=== PATIENT | female | born 1955 | race Hispanic/Latino ===

== ENCOUNTER 2018-12-10 17:11 | Emergency (ER) | payer OTHER ==
--- OUTSIDE RECORDS SUMMARY | 2018-12-10 17:15 | XMS REPORT | Summary of Care ---
:1955 Author Encounter [facility](RAVI) [id number] Date(s): 06/26/14 - 06/27/[address] Discharge Diagnosis: Constipation Discharge Diagnosis: UTI (urinary tract infection) Discharge Disposition: Home Physician Attending: Kyrie Blakely MD Reason for Visit CONSTIPATION Vital Signs Most recent to oldest [Reference 1 2 3 Range]: Height 157.48 cm (06/26/14 1:08 PM) Temperature Oral [96.4-99.1 DegF] 97.8 DegF 99.5 DegF 98.0 DegF (06/27/14 3:59 AM) *HI* (06/26/14 1:08 PM) (06/26/14 11:45 PM) Systolic Blood Pressure [90-140 157 mmHg 163 mmHg 158 mmHg mmHg] *HI* *HI* *HI* (06/27/14 3:59 AM) (06/26/14 11:45 PM) (06/26/14 1:08 PM) Diastolic Blood Pressure [60-90 91 mmHg 102 mmHg 90 mmHg mmHg] *HI* *HI* (06/26/14 1:08 PM) (06/27/14 3:59 AM) (06/26/14 11:45 PM) Respiratory Rate [14-20 BRMIN] 19 BRMIN 18 BRMIN 18 BRMIN (06/27/14 3:59 AM) (06/26/14 11:45 PM) (06/26/14 1:08 PM) Peripheral Pulse Rate [60-100 97 bpm 102 bpm 93 bpm bpm] (06/27/14 3:59 AM) *HI* (06/26/14 1:08 PM) (06/26/14 11:45 PM) Weight 85.909 kg (06/26/14 1:08 PM) Body Mass Index 34.64 m2 (06/26/14 1:08 PM) Problem List No data available for this section Allergies, Adverse Reactions, Alerts Substance Reaction Severity Status NKDA Active Medications lactulose 10 g/15 mL oral syrup 20 gm=30 ml, PO, BID, constipation, # 240 ml, 0 Refill(s) Start Date: 06/27/14 Status: OrderedMacrobid 100 mg oral capsule 100 mg=1 cap, PO, BID, # 20 cap, 0 Refill(s) Start Date: 06/27/14 Stop Date: 07/07/14 Status: OrderedRocephin + Sodium Chloride 0.9% IV 100 mL 1 gm, Route: IVPB, ONCE, Dosing Weight 85.909, kg, Priority: STAT, Start date: 06/27/14 1:16:00, Stop date: 06/27/14 1:16:00 Notes: (Same As: Rocephin). Use with 100ml NS mini-bag PLUS and infuse over 30 min Start Date: 06/27/14 Stop Date: 06/27/14 Status: CompletedSaline Flush 0.9% 10 mL, Route: IVP, Drug Form: INJ, Dosing Weight 85.909, kg, PRN, PRN Line Flush , Start date: 06/26/14 23:41:00, Duration: 30 day, Stop date: 07/26/14 23:40:00 Notes: (Same as: BD Posiflush) Start Date: 06/26/14 Stop Date: 06/27/14 Status: Discontinued Results ELECTROLYTES Most recent to oldest [Reference Range]: 1 Sodium Lvl [135-145 mEq/L] 133 mEq/L *LOW* (06/26/14 11:56 PM) Potassium Lvl [3.5-5.1 mEq/L] 4.3 mEq/L (06/26/14 11:56 PM) Chloride Lvl [95-109 mEq/L] 99 mEq/L (06/26/14 11:56 PM) CO2 [24-32 mEq/L] 26 mEq/L (06/26/14 11:56 PM) AGAP [10.0-20.0 mEq/L] 12.3 mEq/L (06/26/14 11:56 PM) CHEM PANEL Most recent to oldest [Reference Range]: 1 Creatinine Lvl [0.5-1.4 mg/dL] 1.0 mg/dL (06/26/14 11:56 PM) eGFR 61 mL/min/1.73m2 1 *NA* (06/26/14 11:56 PM) BUN [7-22 mg/dL] 12 mg/dL (06/26/14 11:56 PM) B/C Ratio [6-25] 12 (06/26/14 11:56 PM) Glucose Lvl [70-99 mg/dL] 383 mg/dL 2 *HI* (06/26/14 11:56 PM) Total Protein [6.4-8.4 g/dL] 8.2 g/dL (06/26/14 11:56 PM) Albumin Lvl [3.5-5.0 g/dL] 4.1 g/dL (06/26/14 11:56 PM) Globulin [2.0-4.0 g/dL] 4.1 g/dL *HI* (06/26/14 11:56 PM) A/G Ratio [0.7-1.6] 1.0 (06/26/14 11:56 PM) Calcium Lvl [8.5-10.5 mg/dL] 9.9 mg/dL (06/26/14 11:56 PM) ALT [0-65 unit/L] 97 unit/L *HI* (06/26/14 11:56 PM) AST [0-37 unit/L] 67 unit/L *HI* (06/26/14 11:56 PM) Alk Phos [39-136 unit/L] 87 unit/L (06/26/14 11:56 PM) Bili Total [0.2-1.3 mg/dL] 0.7 mg/dL (06/26/14 11:56 PM) 1Result Comment: The eGFR is calculated using the CKD-EPI formula. In most young , healthy individualsthe eGFR will be >90 mL/min/1.73m2. The eGFR declines with age. An eGFR of 60-89 may be normal in some populations, particularly the elderly, for whom the CKD-EPI formula has not been extensively validated. Use of the eGFR is not recommended in the following populations: Individuals with unstable creatinine concentrations, including patients and those with serious co-morbid conditions. Patients with extremes in muscle mass or diet. The data above are obtained from the National Kid[employer] Education Program ( NK[employer]) which additionally recommends that when the eGFR is used in patients with extremes of body mass index for purposesof drug dosing, the eGFR should be multiplied by the estimated BMI.2Interpretive Data: Adult reference range values reflect the clinical guidelines of the [place] [employer].URINE AND STOOL Most recent to oldest [Reference Range]: 1 UA Turbidity [Clear] Slight Cloudy (06/26/14 4:20 PM) UA Color [Yellow] Yellow *NA* (06/26/14 4:20 PM) UA pH [5.0-8.0] 5.5 (06/26/14 4:20 PM) UA Spec Grav [<=1.030] 1.025 (06/26/14 4:20 PM) UA Glucose [Negative mg/dL] >=1000 mg/dL *ABN* (06/26/14 4:20 PM) UA Blood [Negative] Negative (06/26/14 4:20 PM) UA Ketones [Negative] Trace *ABN* (06/26/14 4:20 PM) UA Protein [Negative] Negative (06/26/14 4:20 PM) UA Urobilinogen [0.1-1.0 EU/dL] 0.2 EU/dL (06/26/14 4:20 PM) UA Bili [Negative] Negative *NA* (06/26/14 4:20 PM) UA Leuk Est [Negative] Negative (06/26/14 4:20 PM) UA Nitrite [Negative] Positive *ABN* (06/26/14 4:20 PM) UA WBC [None Seen /HPF] 11-20 /HPF *ABN* (06/26/14 4:20 PM) UA RBC [0-2 /HPF] 3-5 /HPF *ABN* (06/26/14 4:20 PM) UA Bacteria [None Seen /HPF] Many /HPF (06/26/14 4:20 PM) UA Sq Epi [Few /LPF] Rare /LPF (06/26/14 4:20 PM) Micro? Performed (06/26/14 4:20 PM) HEMATOLOGY Most recent to oldest [Reference Range]: 1 WBC [3.7-10.4 K/CMM] 9.8 K/CMM (1/5/15 11:56 PM) RBC [4.20-5.40 M/CMM] 5.14 M/CMM (06/26/14 11:56 PM) Hgb [12.0-16.0 g/dL] 15.0 g/dL (06/26/14 11:56 PM) Hct [36.0-48.0 %] 44.9 % (06/26/14 11:56 PM) MCV [80.0-98.0 fL] 87.3 fL (06/26/14 11:56 PM) MCH [27.0-31.0 pg] 29.1 pg (06/26/14 11:56 PM) MCHC [32.0-36.0 g/dL] 33.4 g/dL (06/26/14 11:56 PM) RDW [11.5-14.5 %] 13.6 % (06/26/14 11:56 PM) Platelet [133-450 K/CMM] 164 K/CMM (06/26/14 11:56 PM) MPV [7.4-10.4 fL] 11.5 fL *HI* (06/26/14 11:56 PM) Segs [45.0-75.0 %] 78.4 % *HI* (06/26/14 11:56 PM) Lymphocytes [20.0-40.0 %] 15.1 % *LOW* (06/26/14 11:56 PM) Monocytes [2.0-12.0 %] 5.4 % (06/26/14 11:56 PM) Eosinophils [0.0-4.0 %] 0.6 % (06/26/14 11:56 PM) Basophils [0.0-1.0 %] 0.5 % (06/26/14 11:56 PM) Segs-Bands # [1.5-8.1 K/CMM] 7.7 K/CMM (06/26/14 11:56 PM) Lymphocytes # [1.0-5.5 K/CMM] 1.5 K/CMM (06/26/14 11:56 PM) Monocytes # [0.0-0.8 K/CMM] 0.5 K/CMM (06/26/14 11:56 PM) Eosinophils # [0.0-0.5 K/CMM] 0.1 K/CMM (06/26/14 11:56 PM) Medications Administered During Your Visit No data available for this section Immunizations No data available for this section Social History Social History Type Response Smoking Status Never smoker, Exposure to Tobacco Smoke None, Cigarette Smoking Last 365 Days No, Reg Smoking Cessation Counseling No
--- OUTSIDE RECORDS SUMMARY | 2018-12-10 17:15 | XMS REPORT | Continuity of Care Document ---
:1955 Author Organization Interface Problems Problem Status Onset Classification Date Comments Source Date Reported Discharge 07/30/19 08/02/2016 [facility] Diagnosis: 17 Right-sided Fernández's palsy. FACIAL DROOP Active 07/30/19 [facility] 17 Discharge 06/27/19 06/29/2014 [facility] Diagnosis: 15 Constipation Discharge 06/27/19 06/29/2014 [facility] Diagnosis: UTI 15 CONSTIPATION Active 06/26/19 [facility] 15 Diabetes Active Problem 08/02/2016 [facility] HTN (<span Active Problem 08/02/2016 [facility] ID="[id number]" >Confirmed</span> ) Fernández's palsy Active Problem 09/12/2016 [facility] Surgical [facility] BP+ - Active Problem 09/12/2016 [facility] Hypertension [facility] DM - Diabetes Active Problem 09/12/2016 [facility] mellitus [facility] Fibromyalgia Active Problem 09/12/2016 [facility] Surgical [facility] Hyperlipidemia Active Problem 09/12/2016 [facility] Surgical [facility] Hypothyroidism Active Problem 09/12/2016 [facility] Surgical [facility] Medications Medication Details Route Status Patient Ordering Order Source Instructions Provider Date Naprosyn 500 mg 500 mg=1 Active Claudia [facility] oral tablet tabs, 017 Surgical Oral, BID, Specialty PRN for Hospital pain, # 20 tabs, 0 Refill(s) HumuLIN R 10 units, Active [facility] Subcutaneo 017 Surgical us, BID, 0 Specialty Refill(s) Hospital gabapentin 100 200 mg=2 Active [facility] mg oral capsule caps, 017 Surgical Oral, TID, Specialty 0 Hospital Refill(s) atorvastatin 10 10 mg=1 Active [facility] mg oral tablet tabs, 017 Surgical Oral, Specialty Daily, 0 Hospital Refill(s) levothyroxine 50 50 mcg=1 Active [facility] mcg (0.05 mg) tabs, 017 Surgical oral tablet Oral, Specialty Daily, 0 Hospital Refill(s) metFORMIN 1000 1,000 mg=1 Active [facility] mg oral tablet tabs, 017 Surgical Oral, BID, Specialty 0 Hospital Refill(s) lisinopril 30 mg 30 mg=1 Active [facility] oral tablet tabs, 017 Surgical Oral, Specialty Daily, 0 Hospital Refill(s) Lubricant Eye 1 drp, Active Drops preserved RIGHT EYE, 017 [facility] ophthalmic Q2H, 1-2 solution drop q2h while awake., # 1 btl, 0 Refill(s) Ondansetron 4 MG 4 mg=1 Active Oral Tablet tab, PO, 017 [Zofran] BID, X 5 day, # 10 tab, 0 Refill(s) acyclovir 800 mg 800 mg=1 Active oral tablet tab, PO, 017 [facility] TID, X 7 day, # 21 tab, 0 Refill(s) {21 See Active (Methylprednisol Instructio 017 [facility] one 4 MG Oral ns, PO, Tablet [Medrol]) Take by } Pack [Medrol mouth as Dosepak] directed on label., # 1 Pack, 0 Refill(s) Lactulose 667 20 gm=30 Active MG/ML Oral ml, PO, 015 Solution BID, constipati on, # 240 ml, 0 Refill(s) Nitrofurantoin 100 mg=1 Active 100 MG Oral cap, PO, 015 [facility] Capsule BID, # 20 [Macrobid] cap, 0 Refill(s) Rocephin 1 gm, Inactive Route: 015 [facility] IVPB, ONCE, Dosing Weight 85.909, kg, Priority: STAT, Start date: 06/27/14 1:16:00, Stop date: 06/27/14 1:16:00Not es: (Same As: Rocephin). Use with 100ml NS mini-bag PLUS and infuse over 30 min Saline Flush 10 mL, No Longer 0.9% Route: Active [facility] IVP, Drug Form: INJ, Dosing Weight 85.909, kg, PRN, PRN Line Flush, Start date: 06/26/14 23:41:00, Duration: 30 day, Stop date: 07/26/14 23:40:00No ashok: (Same as: BD Posiflush) Allergies, Adverse Reactions, Alerts Substance Category Reaction Severity Reaction Status Date Comments Source type Reported Immunizations Immunization Date Given Site Status Last Updated Comments Source Results Order Name Results Value Reference Date Interpretation Comments Source Range CARDIAC Troponin-I null 0.00 - 02 ENZYMES 0.40 /2017 [facility] CARDIAC CK MB Index 1.4 0.0 - 2.5 07/30 [facility]YMES [facility] CARDIAC CK MB 3.7 ng/mL 0.5 - 3.6 07/30 [facility]YMES [facility] CARDIAC Total CK 267 unit/L 12 - 191 07/30 ENZYMES [facility] CHEM PANEL eGFR 54 07/30 Result Comment: The eGFR is calculated using the CKD-EPI formula. In most young, healthy individuals the eGFR will be >90 mL/ min/1.73m2. The eGFR declines with age. An eGFR of 60-89 may be normal in mL/min/1.7 /2016 some populations, particularly the elderly, for whom the CKD-EPI formula has not been extensively validated. Use of the eGFR is not recommended in the following populations: [facility] 3m2 Individuals with unstable creatinine concentrations, including patients and those with serious co-morbid conditions. Patients with extremes in muscle mass or diet. The data above are obtained from the National Kidney Disease Education Program (NKDEP) which additionally recommends that when the eGFR is used in patients with extremes of body mass index for purposes of drug dosing, the eGFR should be multiplied by the estimated BMI. CHEM PANEL Bili Total 0.4 mg/dL 0.2 - 1.3 07/30 [facility] CHEM PANEL Total 7.5 g/dL 6.4 - 8.4 07/30 [facility] CHEM PANEL ALT 57 unit/L 0 - 65 07/30 [facility] CHEM PANEL Albumin Lvl 4.0 g/dL 3.5 - 5.0 07/30 [facility] CHEM PANEL AST 32 unit/L 0 - 37 07/30 [facility] CHEM PANEL B/C Ratio 18 6 - 25 07/30 [facility] CHEM PANEL A/G Ratio 1.1 0.7 - 1.6 07/30 [facility] CHEM PANEL Globulin 3.5 g/dL 2.7 - 4.2 07/30 [facility] CHEM PANEL Alk Phos 60 unit/L 39 - 136 02/ [facility] CHEM PANEL AGAP 12.0 meq/L 10.0 - 02 MH 20.0 /2016 [facility] CHEM PANEL Calcium Lvl 9.5 mg/dL 8.5 - 10.5 07/30 [facility] CHEM PANEL CO2 28 meq/L 24 - 32 07/30 [facility] CHEM PANEL Chloride Lvl 98 meq/L 95 - 109 07/30 [facility] CHEM PANEL Sodium Lvl 134 meq/L 135 - 145 02 [facility] CHEM PANEL Creatinine 1.10 mg/dL 0.50 - 02 MH Lvl 1.40 /2016 [facility] CHEM PANEL Glucose Lvl 351 mg/dL 70 - 99 07/30 [facility] CHEM PANEL BUN 20 mg/dL 7 - 22 07/30 [facility] CHEM PANEL Potassium 4.0 meq/L 3.5 - 5.1 07/30 Lvl /2017 [facility] HEMATOLOGY PT 13.6 s 12.0 - 07/30 MH 14.7 /2016 [facility] HEMATOLOGY PTT 28.2 s 22.9 - 02 MH 35.8 /2016 [facility] HEMATOLOGY INR 1.02 0.85 - 02 MH 1.17 /2016 [facility] HEMATOLOGY Segs 56.3 % 45.0 - 02 75.0 /2016 [facility] HEMATOLOGY Monocytes 6.1 % 2.0 - 12.0 07/30 [facility] HEMATOLOGY Eosinophils 5.9 % 0.0 - 4.0 07/30 [facility] HEMATOLOGY Monocytes # 0.3 K/CMM 0.0 - 0.8 07/30 [facility] HEMATOLOGY Lymphocytes 30.6 % 20.0 - 02/08 MH 40.0 /2017 [facility] HEMATOLOGY Lymphocytes 1.5 K/CMM 1.0 - 5.5 02/08 MH # /2016 [facility] HEMATOLOGY Segs-Bands # 2.8 K/CMM 1.5 - 8.1 07/30 [facility] HEMATOLOGY Basophils 1.1 % 0.0 - 1.0 07/30 [facility] HEMATOLOGY Basophils # 0.1 K/CMM 0.0 - 0.2 07/30 [facility] HEMATOLOGY Eosinophils 0.3 K/CMM 0.0 - 0.5 07/30 MH /2016 [facility] HEMATOLOGY MPV 10.9 fL 7.4 - 10.4 07/30 [facility] Platelet 111 K/CMM 133 - 450 07/30 [facility] MCH 29.2 pg 27.0 - 07/30 MH 31.0 [facility] MCV 87.9 fL 80.0 - 07/30 MH 98.0 /2016 [facility] Hct 38.3 % 36.0 - 07/30 48.0 /2016 [facility] MCHC 33.2 g/dL 32.0 - 07/30 36.0 [facility] RDW 13.7 % 11.5 - 07/30 MH 14.5 /2016 [facility] WBC 5.0 K/CMM 3.7 - 10.4 07/30 [facility] RBC 4.36 M/CMM 4.20 - 07/30 5.40 /2016 [facility] Hgb 12.7 g/dL 12.0 - 07/30 16.0 [facility] Brain wo Brain wo I agree with the above findings and impression. 07/30 - contrast contrast CT /2016 - [facility] CT Clinical Indication: Weakness Comparison: Comparison is made to head CT examination dated 12/13/2011. Read by: Fantasma Worley MD Dictated Date/time: 07/30/16 14:54 Electronically Signed by: Fantasma Worley MD 07/30/16 14:56 FINAL REPORT TECHNIQUE: CT images were obtained from the foramen magnum to the vertex without the use of intravenous contrast on a multidetector CT. Coronal and sagittal reconstructions were obtained. - - CT radiation dose DLP: 1149.40 mGy-cm Read by: Alexis Hayden MD Dictated Date/time: 07/30/16 14:49 FINDINGS: Electronically Signed by: Alexis Hayden MD 07/30/16 14:52 FINAL REPORT The ventricles and sulci are normal in size and configuration. No mass effect or midline shift. The basilar cisterns appear patent. No acute intracranial hemorrhage. There is preservation of the cuellar-wh ite matter differentiation. Minimal foci of low attenuation are present throughout the periventricular white matter. The visualized portions of the paranasal sinuses and mastoid air cells appear clear. If there is further concern for intracranial pathology or acute stroke, MRI of the brain may be performed for complete assessment. IMPRESSION: 1. No acute intracranial abnormality. No acute intracranial hemorrhage. 2. Minimal foci of low attenuation present throughout the periventricular white matter. This finding is nonspecific, but may be seen in the setting of chronic small vessel ischemic disease. SL: [id number] CHEM PANEL B/C Ratio 12 6 - 25 06/27 [facility] CHEM PANEL Globulin 4.1 g/dL 2.0 - 4.0 06/27 [facility] CHEM PANEL A/G Ratio 1.0 0.7 - 1.6 06/27 [facility] CHEM PANEL AGAP 12.3 meq/L 10.0 - 06/27 MH 20.0 [facility] CHEM PANEL eGFR 61 06/27 1Result Comment: The eGFR is calculated using the CKD-EPI formula. In most young, healthy individuals the eGFR will be >90 mL/ min/1.73m2. The eGFR declines with age. An eGFR of 60-89 may be normal in mL/min/1.7 some populations, particularly the elderly, for whom the CKD-EPI formula has not been extensively validated. Use of the eGFR is not recommended in the following populations: [facility] 3m2 Individuals with unstable creatinine concentrations, including patients and those with serious co-morbid conditions. Patients with extremes in muscle mass or diet. The data above are obtained from the National Kidney Disease Education Program (NKDEP) which additionally recommends that when the eGFR is used in patients with extremes of body mass index for purposes of drug dosing, the eGFR should be multiplied by the estimated BMI. CHEM PANEL ALT 97 unit/L 0 - 65 06/27 [facility] CHEM PANEL BUN 12 mg/dL 7 - 22 06/27 [facility] CHEM PANEL Creatinine 1.0 mg/dL 0.5 - 1.4 06/27 [facility] CHEM PANEL Sodium Lvl 133 meq/L 135 - 145 06/27 [facility] CHEM PANEL Potassium 4.3 meq/L 3.5 - 5.1 06/27 [facility] CHEM PANEL Chloride Lvl 99 meq/L 95 - 109 06/27 [facility] CHEM PANEL Calcium Lvl 9.9 mg/dL 8.5 - 10.5 06/27 [facility] CHEM PANEL Total 8.2 g/dL 6.4 - 8.4 06/27 Protein [facility] CHEM PANEL Albumin Lvl 4.1 g/dL 3.5 - 5.0 06/27 [facility] CHEM PANEL Alk Phos 87 unit/L 39 - 136 06/27 [facility] CHEM PANEL AST 67 unit/L 0 - 37 06/27 [facility] CHEM PANEL Bili Total 0.7 mg/dL 0.2 - 1.3 06/27 [facility] CHEM PANEL CO2 26 meq/L 24 - 32 06/27 [facility] CHEM PANEL Glucose Lvl 383 mg/dL 70 - 99 06/27 2Interpretive Data: Adult reference range values reflect the clinical guidelines of the [place] [employer]. [facility] HEMATOLOGY Basophils 0.5 % 0.0 - 1.0 06/27 [facility] HEMATOLOGY Eosinophils 0.6 % 0.0 - 4.0 06/27 [facility] HEMATOLOGY Lymphocytes 15.1 % 20.0 - 06/27 MH 40.0 [facility] HEMATOLOGY Monocytes 5.4 % 2.0 - 12.0 06/27 [facility] HEMATOLOGY Segs-Bands # 7.7 K/CMM 1.5 - 8.1 06/27 [facility] HEMATOLOGY Monocytes # 0.5 K/CMM 0.0 - 0.8 06/27 [facility] HEMATOLOGY Lymphocytes 1.5 K/CMM 1.0 - 5.5 06/27 MH # /2014 [facility] HEMATOLOGY Eosinophils 0.1 K/CMM 0.0 - 0.5 06/27 MH /2014 [facility] HEMATOLOGY Segs 78.4 % 45.0 - 06/27 MH 75.0 [facility] HEMATOLOGY Platelet 164 K/CMM 133 - 450 06/27 [facility] HEMATOLOGY RDW 13.6 % 11.5 - 06/27 MH 14.5 [facility] HEMATOLOGY MCHC 33.4 g/dL 32.0 - 06/27 MH 36.0 /2014 [facility] HEMATOLOGY MCH 29.1 pg 27.0 - 06/27 MH 31.0 /2014 [facility] HEMATOLOGY MPV 11.5 fL 7.4 - 10.4 06/27 [facility] HEMATOLOGY MCV 87.3 fL 80.0 - 06/27 MH 98.0 /2014 [facility] HEMATOLOGY Hct 44.9 % 36.0 - 06/27 MH 48.0 /2014 [facility] HEMATOLOGY Hgb 15.0 g/dL 12.0 - 06/27 MH 16.0 [facility] HEMATOLOGY RBC 5.14 M/CMM 4.20 - 06/27 5.40 /2014 [facility] HEMATOLOGY WBC 9.8 K/CMM 3.7 - 10.4 06/27 [facility] URINE AND UA Color Yellow Yellow 06/26 [facility] *NA* (06/26/14 4:20 PM) URINE AND UA pH 5.5 5.0 - 8.0 06/26 [facility] URINE AND UA Spec Grav 1.025 <=1.030 06/26 [facility] URINE AND UA Turbidity Slight Cloudy Clear 06/26 [facility] (06/26/14 4:20 PM) URINE AND UA Leuk Est Negative Negative 06/26 [facility] (06/26/14 4:20 PM) URINE AND UA Nitrite Positive Negative 06/26 [facility] *ABN* (06/26/14 4:20 PM) URINE AND UA 0.2 EU/dL 0.1 - 1.0 06/26 [facility] Urobilinogen [facility] URINE AND UA Bili Negative Negative 06/26 [facility] *NA* (06/26/14 4:20 PM) URINE AND UA Blood Negative Negative 06/26 [facility] (06/26/14 4:20 PM) URINE AND UA Protein Negative Negative 06/26 [facility] (06/26/14 4:20 PM) URINE AND UA Glucose >=1000 Negative 06/26 [facility] mg/dL mg/dL [facility] URINE AND UA Ketones Trace Negative 06/26 [facility] *ABN* (06/26/14 4:20 PM) URINE AND Micro? Performed 06/26 [facility] (06/26/14 4:20 PM) URINE AND UA RBC 3-5 /HPF 0 - 2 06/26 [facility] URINE AND UA Bacteria Many /HPF None Seen 06/26 [facility] /HPF [facility] URINE AND UA Sq Epi Rare /LPF Few /LPF 06/26 [facility] URINE AND UA WBC 11-20 /HPF None Seen 06/26 [facility] /HPF [facility] Vital Signs Vital Sign Value Date Comments Source Peripheral Pulse Rate 92 09/10/2016 [facility] Temperature Oral (F) 36.5 Amena 09/10/2016 [facility] Systolic (mm Hg) <content 09/10/2016 [facility] ID='[id number] [facility] [id number]'>146</cont ent>/<content ID='[id number]'>87</tawanna nt> Respitory Rate 18 09/10/2016 [facility] Surgical [facility] Respitory Rate 16 09/10/2016 [facility] Systolic (mm Hg) <content 09/10/2016 [facility] ID='[id number] [facility] [id number]'>146</cont ent>/<content ID='[id number]'>87</tawanna nt> Peripheral Pulse Rate 93 09/10/2016 [facility] Surgical Specialty [facility] Temperature Oral (F) 36.8 Amena 09/10/2016 [facility] Temperature Oral (F) 98.4 F 07/30/2016 [facility] Respitory Rate 22 07/30/2016 [facility] Systolic (mm Hg) 133 07/30/2016 [facility] Diastolic (mm Hg) 86 07/30/2016 [facility] Respitory Rate 21 07/30/2016 [facility] Systolic (mm Hg) 144 07/30/2016 [facility] Diastolic (mm Hg) 84 07/30/2016 [facility] Weight 80.909 07/30/2016 [facility] BMI Calculated 32.62 07/30/2016 [facility] Height 157.48 cm 07/30/2016 [facility] Systolic (mm Hg) 161 07/30/2016 [facility] Diastolic (mm Hg) 97 07/30/2016 [facility] Temperature Oral (F) 98.5 F 07/30/2016 [facility] Respitory Rate 16 07/30/2016 [facility] Heart Rate 94 07/30/2016 [facility] Heart Rate 97 06/27/2014 [facility] Temperature Oral (F) 97.8 F 06/27/2014 [facility] Respitory Rate 19 06/27/2014 [facility] Diastolic (mm Hg) 91 06/27/2014 [facility] Systolic (mm Hg) 157 06/27/2014 [facility] Temperature Oral (F) 99.5 F 06/27/2014 [facility] Respitory Rate 18 06/27/2014 [facility] Diastolic (mm Hg) 102 06/27/2014 [facility] Systolic (mm Hg) 163 06/27/2014 [facility] Heart Rate 102 06/27/2014 [facility] Heart Rate 93 06/26/2014 [facility] Respitory Rate 18 06/26/2014 [facility] Temperature Oral (F) 98.0 F 06/26/2014 [facility] Weight 85.909 06/26/2014 [facility] Height 157.48 cm 06/26/2014 [facility] BMI Calculated 34.64 06/26/2014 [facility] Systolic (mm Hg) 158 06/26/2014 [facility] Diastolic (mm Hg) 90 06/26/2014 [facility] Encounters Location Location Encounter Encounter Reason Attending ADM DC Status Source Details Type Number For Provider Date Date Visit [facility] [id number] Kyriecarlos manuel Blakely 06/26 06/27 [facility] Emergency /2014 [facility] Emergency [id number] [place] 07/30 07/30 [facility] [place] /2016 [facility] Emergency [id number] Fall Reinaldo 09/10 09/10 Active [facility] Claudia /2016 Surgical [facility] Procedures Procedure Code Date Perfomer Comments Source Emergency department 07854 [facility] Surgical visit for the 7 Specialty evaluation and Hospital management of a patient, which requires these 3 hwang components: An expanded problem focused history; An expanded problem focused examination; and Medical decision making of moderate complexity. Counseling Radiologic [id number] [facility] Surgical examination, knee; 7 Specialty complete, 4 or more Hospital views Abdominal [id number] [facility] Surgical hysterectomy [facility] Appendectomy [id number] [facility] Surgical [facility] Cataract [id number] [facility] Surgical [facility] Cholecystectomy [id number] [facility]
--- OUTSIDE RECORDS SUMMARY | 2018-12-10 17:16 | XMS REPORT | Summary of Care ---
:1955 Author Organization [facility] Address [address] [place], [place] [address]- Encounter HQ Christen(FIN) [phone] Date(s): 07/30/16 - 07/30/16 [facility] [address] [place] [address]- Discharge Diagnosis: Right-sided Fernández's palsy. Discharge Disposition: Home or Self Care Attending Physician: Lebron Coulter DO Vital Signs Most recent to oldest [Reference 1 2 3 Range]: Height 157.48 cm (07/30/16 1:57 PM) Temperature Oral [96.4-99.1 DegF] 98.4 DegF 98.5 DegF (07/30/16 4:26 PM) (07/30/16 1:57 PM) Blood Pressure [90-140/60-90 mmHg] 133/86 mmHg 144/84 mmHg 161/97 mmHg (07/30/16 4:26 PM) *HI* *HI* (07/30/16 2:46 PM) (07/30/16 1:57 PM) Respiratory Rate [14-20 BRMIN] 22 BRMIN 21 BRMIN 16 BRMIN *HI* *HI* (07/30/16 1:57 PM) (07/30/16 4:26 PM) (07/30/16 2:46 PM) Peripheral Pulse Rate [60-100 bpm] 94 bpm (07/30/16 1:57 PM) Weight 80.909 kg (07/30/16 1:57 PM) Body Mass Index 32.62 m2 (07/30/16 1:57 PM) Problem List Condition Effective Dates Status Health Status Informant Diabetes(Confirmed) Active HTN (hypertension)(Confirmed) Active Allergies, Adverse Reactions, Alerts Substance Reaction Severity Status NKDA Active Medications acyclovir 800 mg oral tablet 800 mg=1 tab, PO, TID, X 7 day, # 21 tab, 0 Refill(s) Start Date: 07/30/16 Stop Date: 08/06/16 Status: OrderedLubricant Eye Drops preserved ophthalmic solution 1 drp, RIGHT EYE, Q2H, 1-2 drop q2h while awake., # 1 btl, 0 Refill(s) Start Date: 07/30/16 Status: OrderedMedrol Dosepak 4 mg oral tablet See Instructions, PO, Take by mouth as directed on label., # 1 Pack, 0 Refill(s) Start Date: 07/30/16 Stop Date: 08/05/16 Status: OrderedZofran 4 mg oral tablet 4 mg=1 tab, PO, BID, X 5 day, # 10 tab, 0 Refill(s) Start Date: 07/30/16 Stop Date: 08/04/16 Status: Ordered Results ELECTROLYTES Most recent to oldest [Reference Range]: 1 Sodium Lvl [135-145 mEq/L] 134 mEq/L *LOW* (07/30/16 2:46 PM) Potassium Lvl [3.5-5.1 mEq/L] 4.0 mEq/L (07/30/16 2:46 PM) Chloride Lvl [95-109 mEq/L] 98 mEq/L (07/30/16 2:46 PM) CO2 [24-32 mEq/L] 28 mEq/L (07/30/16 2:46 PM) AGAP [10.0-20.0 mEq/L] 12.0 mEq/L (07/30/16 2:46 PM) CHEM PANEL Most recent to oldest [Reference Range]: 1 Creatinine Lvl [0.50-1.40 mg/dL] 1.10 mg/dL (07/30/16 2:46 PM) eGFR 54 mL/min/1.73m2 1 *NA* (07/30/16 2:46 PM) BUN [7-22 mg/dL] 20 mg/dL (07/30/16 2:46 PM) B/C Ratio [6-25] 18 (07/30/16 2:46 PM) Glucose Lvl [70-99 mg/dL] 351 mg/dL *HI* (07/30/16 2:46 PM) Total Protein [6.4-8.4 g/dL] 7.5 g/dL (07/30/16 2:46 PM) Albumin Lvl [3.5-5.0 g/dL] 4.0 g/dL (07/30/16 2:46 PM) Globulin [2.7-4.2 g/dL] 3.5 g/dL (07/30/16 2:46 PM) A/G Ratio [0.7-1.6] 1.1 (07/30/16 2:46 PM) Calcium Lvl [8.5-10.5 mg/dL] 9.5 mg/dL (07/30/16 2:46 PM) ALT [0-65 unit/L] 57 unit/L (07/30/16 2:46 PM) AST [0-37 unit/L] 32 unit/L (07/30/16 2:46 PM) Alk Phos [39-136 unit/L] 60 unit/L (07/30/16 2:46 PM) Bili Total [0.2-1.3 mg/dL] 0.4 mg/dL (07/30/16 2:46 PM) 1Result Comment: The eGFR is calculated [...] eGFR should be multiplied by the estimated BMI.CARDIAC ENZYMES Most recent to oldest [Reference Range]: 1 Total CK [12-191 unit/L] 267 unit/L *HI* (07/30/16 2:46 PM) CK MB [0.5-3.6 ng/mL] 3.7 ng/mL *HI* (07/30/16 2:46 PM) CK MB Index [0.0-2.5] 1.4 (07/30/16 2:46 PM) Troponin-I [0.00-0.40 ng/mL] <0.02 ng/mL (07/30/16 2:46 PM) HEMATOLOGY Most recent to oldest [Reference Range]: 1 WBC [3.7-10.4 K/CMM] 5.0 K/CMM (07/30/16 2:46 PM) RBC [4.20-5.40 M/CMM] 4.36 M/CMM (07/30/16 2:46 PM) Hgb [12.0-16.0 g/dL] 12.7 g/dL (07/30/16 2:46 PM) Hct [36.0-48.0 %] 38.3 % (07/30/16 2:46 PM) MCV [80.0-98.0 fL] 87.9 fL (07/30/16 2:46 PM) MCH [27.0-31.0 pg] 29.2 pg (07/30/16 2:46 PM) MCHC [32.0-36.0 g/dL] 33.2 g/dL (07/30/16 2:46 PM) RDW [11.5-14.5 %] 13.7 % (07/30/16 2:46 PM) Platelet [133-450 K/CMM] 111 K/CMM *LOW* (07/30/16 2:46 PM) MPV [7.4-10.4 fL] 10.9 fL *HI* (07/30/16 2:46 PM) Segs [45.0-75.0 %] 56.3 % (07/30/16 2:46 PM) Lymphocytes [20.0-40.0 %] 30.6 % (07/30/16 2:46 PM) Monocytes [2.0-12.0 %] 6.1 % (07/30/16 2:46 PM) Eosinophils [0.0-4.0 %] 5.9 % *HI* (07/30/16 2:46 PM) Basophils [0.0-1.0 %] 1.1 % *HI* (07/30/16 2:46 PM) Segs-Bands # [1.5-8.1 K/CMM] 2.8 K/CMM (07/30/16 2:46 PM) Lymphocytes # [1.0-5.5 K/CMM] 1.5 K/CMM (07/30/16 2:46 PM) Monocytes # [0.0-0.8 K/CMM] 0.3 K/CMM (07/30/16 2:46 PM) Eosinophils # [0.0-0.5 K/CMM] 0.3 K/CMM (07/30/16 2:46 PM) Basophils # [0.0-0.2 K/CMM] 0.1 K/CMM (07/30/16 2:46 PM) PT [12.0-14.7 seconds] 13.6 seconds (07/30/16 2:46 PM) INR [0.85-1.17] 1.02 (07/30/16 2:46 PM) PTT [22.9-35.8 seconds] 28.2 seconds (07/30/16 2:46 PM) Immunizations No data available for this section Procedures No data available for this section Social History Social History Type Response Smoking Status Never smoker; Exposure to Tobacco Smoke None; Cigarette Smoking Last 365 Days No; Reg Smoking Cessation Counseling No Assessment and Plan No data available for this section
--- OUTSIDE RECORDS SUMMARY | 2018-12-10 17:16 | XMS REPORT | CCD ---
:1955 Author Organization [facility] Surgical Specialty [facility] Care Team Providers Name Role Phone Reinaldo Taylor Consulting Provider [phone] Allergies, Adverse Reactions, Alerts Substance Reaction Status No Known Allergies Active Problem List Condition Effective Dates Status Fernández's palsy Active BP+ - Hypertension Active DM - Diabetes mellitus Active Fibromyalgia Active Hyperlipidemia Active Hypothyroidism Active Medications Medication Instructions Start Date End Date Status Naprosyn 500 mg oral tablet 500 mg=1 tabs, Oral, BID, 09/10/2016 09/24/2016 Ordered PRN for pain, # 20 tabs, 0 Refill(s) gabapentin 100 mg oral 200 mg=2 caps, Oral, TID, 0 09/10/2016 09/24/2016 Ordered capsule Refill(s) atorvastatin 10 mg oral 10 mg=1 tabs, Oral, Daily, 09/10/2016 09/24/2016 Ordered tablet 0 Refill(s) levothyroxine 50 mcg (0.05 50 mcg=1 tabs, Oral, Daily, 09/10/20162016 Ordered mg) oral tablet 0 Refill(s) metFORMIN 1000 mg oral 1,000 mg=1 tabs, Oral, BID, 09/10/2016 09/24/2016 Ordered tablet 0 Refill(s) lisinopril 30 mg oral tablet 30 mg=1 tabs, Oral, Daily, 09/10/20162016 Ordered 0 Refill(s) HumuLIN R 10 units, Subcutaneous, 09/10/2016 09/24/2016 Ordered BID, 0 Refill(s) Vital Signs Most recent to oldest [Reference 1 2 Range]: Temperature Oral [35.8-37.3 DegC] 36.5 DegC 36.8 DegC (09/10/2016 09:41:00) (09/10/2016 08:27:00) Peripheral Pulse Rate [55-105 92 bpm 93 bpm bpm] (09/10/2016 09:41:00) (09/10/2016 08:27:00) Respiratory Rate [12-20] 18 16 (09/10/2016 09:41:00) (09/10/2016 08:27:00) SpO2 [90-100 %] 96 % 95 % (09/10/2016 09:41:00) (09/10/2016 08:27:00) Blood Pressure [110-120/65-85 <content ID='[id number]'>146</content>/< content ID='[id number]'>87</content> mmHg <content ID='[id number]'> 146</content>/<content ID='[id number]'>87</content> mmHg mmHg] *HI* *HI* (09/10/2016 09:41:00) (09/10/2016 08:27:00) Most recent to oldest [Reference Range]: 1 2 Height/Length Estimated 158 cm (09/10/2016 08:27:00) Weight Estimated 80 kg (09/10/2016 08:27:00) Body Mass Index Estimated 32.05 kg/m2 (09/10/2016 08:27:00) Procedures Procedures Date Related Diagnosis Abdominal hysterectomy Appendectomy Cataract Cholecystectomy Emergency department visit for the evaluation 09/10/2016 00:00:00 and management of a patient, which requires these 3 hwang components: An expanded problem focused history; An expanded problem focused examination; and Medical decision making of moderate complexity. Counseling Radiologic examination, knee; complete, 4 or 09/10/2016 00:00:00 more views
[2018-12-10 18:18] LABS: Absolute Lymphocytes (CBC) 1.1 K/uL (0.7-4.9); Basophils % 4.8 % (0-1.3); Eosinophils % 2.2 % (0-4.4); Hematocrit 45.2 % (36.0-45.0); Lymphocytes % 18.4 % (15.3-44.8); MPV 12.1 fL (7.6-11.3); Monocytes % 6.2 % (3.3-12.3); RBC Red Blood Cell Count 5.12 M/uL (3.86-4.86)
[2018-12-10] MEDS ORDERED: ONDANSETRON 4 MG/2 ML VIAL ONE ×2 (18:18→21:57)
[2018-12-10] MEDS ORDERED: NA CHLORIDE 0.9% 500 ML ONE (18:18)
[2018-12-10] MEDS ORDERED: LIDOCAINE VISCOUS 2% SOLN 15 ML UDC ONE (18:18)
[2018-12-10] MEDS ORDERED: MAGNE/ALUM HYDROXD 30 ML UCUP ONE (18:18)
[2018-12-10 18:33] LABS: Albumin 4.1 g/dL (3.4-5.0); Bilirubin Direct 0.2 mg/dL (0-0.2); Bilirubin Total 0.5 mg/dL (0.2-1.0); Potassium 3.6 mmol/L (3.5-5.1); Protein, Total 8.7 g/dL (6.4-8.2)
[2018-12-10 18:44] LABS: Blood Morphology Comment NOT SEEN (NOT SEEN); Platelet Estimate ADEQ
--- NOTE | 2018-12-10 21:37 | ER ---
Nurse's Notes [facility] Name: Shanika Crane Age: 63 yrs Sex: Female : 1955 Arrival Date: 12/10/2018 Time: 17:16 Bed 7 Private MD: Fantasma Patten E Diagnosis: Noninfective gastroenteritis and colitis, unspecified Presentation: 12/10 17:39 Presenting complaint: Patient states: nausea, vomiting since Thursday, denies abd pain iw but states she feels like her upper abdomen is hard, was able to eat some oatmeal and drink tea this morning but threw everything up at 2 pm, also has been belching and has a sour taste in her mouth. also feels generalized weakness and thirsty, denies diarrhea. Transition of care: patient was not received from another setting of care. Onset of symptoms was December 08, 2018. Risk Assessment: Do you want to hurt yourself or someone else? Patient reports no desire to harm self or others. Initial Sepsis Screen: Does the patient meet any 2 criteria? No. Patient's initial sepsis screen is negative. Does the patient have a suspected source of infection? No. Patient's initial sepsis screen is negative. Care prior to arrival: None. 17:39 Method Of Arrival: Ambulatory iw 17:39 Acuity: YAMILA 3 iw Historical: - Allergies: 17:48 No Known Allergies; iw - Home Meds: 17:48 levothyroxine 125 mcg tab 1 tab once daily [Active]; lisinopril-hydrochlorothiazide iw 20-25 mg oral tab 1 tab once daily [Active]; Lyrica 100 mg Oral 2 times per day [Active]; atorvastatin 40 mg oral tab 1 tab once daily [Active]; Linzess 145 mcg oral cap 1 cap once daily [Active]; pantoprazole 40 mg oral TbEC 1 tab once daily [Active]; metformin 1,000 mg Oral tab 1 tab 2 times per day [Active]; Levemir FlexTouch 100 unit/mL (3 mL) subcutaneous inpn 80 unit daily [Active]; Novolin R Sub-Q 10 unit twice a day [Active]; ozempic 1 mg weekly [Active]; tramadol 50 mg Oral tab as needed [Active]; - PMHx: 17:48 Diabetes - IDDM; Hypertension; Hyperlipidemia; Hypothyroidism; iw - PSHx: 17:48 Hysterectomy; Appendectomy; Cholecystectomy; iw - Immunization history:: Adult Immunizations not up to date. - Social history:: Smoking status: Patient/guardian denies using tobacco. - Ebola Screening: : Patient negative for fever greater than or equal to 101.5 degrees Fahrenheit, and additional compatible Ebola Virus Disease symptoms Patient denies exposure to infectious person Patient denies travel to an Ebola-affected area in the 21 days before illness onset No symptoms or risks identified at this time. - Family history:: not pertinent. - Hospitalizations: : No recent hospitalization is reported. Screenin:00 Abuse screen: Denies threats or abuse. Nutritional screening: No deficits noted. aa5 Tuberculosis screening: No symptoms or risk factors identified. Fall Risk None identified. Assessment: 18:00 General: Appears comfortable, Behavior is calm, cooperative. Pain: Denies pain. Neuro: aa5 Level of Consciousness is awake, alert, obeys commands, Oriented to person, place, time, situation. Cardiovascular: Heart tones S1 S2 present Rhythm is regular. Respiratory: Airway is patent Respiratory effort is even, unlabored, Respiratory pattern is regular, symmetrical. GI: Abdomen is round Last BM was December 10, 2018. Bowel sounds present X 4 quads. Abd is soft and non tender X 4 quads. Reports bloating, nausea, vomiting, Patient currently denies abdominal pain, diarrhea. : Denies burning with urination, inability to void, urinary frequency, urgency. EENT: No signs and/or symptoms were reported regarding the EENT system. Derm: Skin is pink, warm \T\ dry. Musculoskeletal: Range of motion: intact in all extremities. 18:08 Reassessment: Pt finished drinking CT oral contrast but vomited after she finished it. aa5 Pt vomited 1300 ml, Zofran being administered. CT notified that pt vomited contrast, CT will bring a new bottle of oral contrast. . 18:20 Reassessment: Patient is alert, oriented x 3, equal unlabored respirations, skin aa5 warm/dry/pink. Patient states feeling better. Pt currently denies nausea. Pt sitting up in bed drinking CT oral contrast. 18:28 Reassessment: Patient is alert, oriented x 3, equal unlabored respirations, skin aa5 warm/dry/pink. Pt finished CT oral contrast, CT notified . 18:55 Reassessment: Patient is alert, oriented x 3, equal unlabored respirations, skin aa5 warm/dry/pink. Patient states feeling better. Denies nausea. 19:10 Reassessment: Patient appears in no apparent distress at this time. Patient and/or aa1 family updated on plan of care and expected duration. Pain level reassessed. Patient is alert, oriented x 3, equal unlabored respirations, skin warm/dry/pink. Pt awaiting CT scan. 21:09 Reassessment: Patient appears in no apparent distress at this time. Patient and/or aa1 family updated on plan of care and expected duration. Pain level reassessed. Patient is alert, oriented x 3, equal unlabored respirations, skin warm/dry/pink. Awaiting CT results. 22:01 Reassessment: Patient appears in no apparent distress at this time. Patient and/or jd3 family updated on plan of care and expected duration. Pain level reassessed. Patient is alert, oriented x 3, equal unlabored respirations, skin warm/dry/pink. Vital Signs: 17:49 BP 140 / 88; Pulse 92; Resp 16; Temp 98.2; Pulse Ox 97% on R/A; Weight 77.11 kg; Height iw 5 ft. 2 in. (157.48 cm); Pain 0/10; 18:55 BP 128 / 86; Pulse 90; Resp 16 S; Temp 98.0(O); Pulse Ox 97% on R/A; Pain 0/10; aa5 19:10 BP 105 / 76; Pulse 86; Resp 16; Pulse Ox 98% ; Pain 0/10; aa1 21:09 BP 109 / 75; Pulse 92; Resp 18; Temp 97.6; Pulse Ox 98% on R/A; Pain 0/10; aa1 17:49 Body Mass Index 31.09 (77.11 kg, 157.48 cm) iw ED Course: 17:16 Patient arrived in ED. mr 17:17 Fantasma Patten MD is Private Physician. mr 17:34 Ophelia Gibson, RN is Primary Nurse. aa5 17:40 Lorne Martin MD is Attending Physician. rn 17:41 Triage completed. iw 18:00 Initial lab(s) drawn, by me, sent to lab. Inserted saline lock: 20 gauge in right aa5 antecubital area, using aseptic technique. Blood collected. 18:00 Patient has correct armband on for positive identification. Bed in low position. Call aa5 light in reach. Side rails up X2. Adult w/ patient. 18:00 Arm band placed on. aa5 18:57 No provider procedures requiring assistance completed. aa5 18:58 Report given to DINAH Galindo. aa5 19:41 Attending Physician role handed off by Lorne Martin MD ma2 19:41 Marivel Cedeño MD is Attending Physician. ma2 20:04 CT Abd/Pelvis - PO and IV Contrast In Process Unspecified. EDMS 21:35 Fantasma Gee MD is Referral Physician. ma2 22:01 IV discontinued, intact, bleeding controlled, No redness/swelling at site. Pressure jd3 dressing applied. Administered Medications: 18:08 Drug: Zofran 4 mg Route: IVP; Site: right antecubital; aa5 18:20 Follow up: Response: No adverse reaction; Nausea is decreased aa5 18:08 Drug: NS 0.9% 500 ml Route: IV; Rate: bolus; Site: right antecubital; aa5 19:57 Follow up: IV Status: Completed infusion; IV Intake: 500ml aa1 18:19 Drug: GI Cocktail without - (Maalox Suspension 30 ml, Lidocaine Liquid 2 % 15 aa5 ml) Route: PO; 21:59 Drug: Zofran 4 mg Route: IVP; Site: right antecubital; jd3 22:00 Follow up: Response: Medication administered at discharge. jd3 Intake: 19:57 IV: 500ml; Total: 500ml. aa1 Outcome: 21:34 Discharge ordered by . ma2 22:00 Discharged to home ambulatory, with family. jd3 22:00 Condition: stable 22:00 Discharge instructions given to patient, family, Instructed on discharge instructions, follow up and referral plans. medication usage, Demonstrated understanding of instructions, follow-up care, medications, Prescriptions given X X 5 22:01 Patient left the ED. jd3 Signatures: Dispatcher [employer] EDTN Josie Sal RN RN aa1 Blanca Thayer Irene, RN RN iw Lorne Martin MD MD rn Calderon, Audri, RN RN aa5 Raymond Vyas RN RN jd3 Marivel Cedeño MD MD ma2 Corrections: (The following items were deleted from the chart) 18:56 18:30 BP 128 / 86; Pulse 90bpm; Resp 16bpm; Spontaneous; Pulse Ox 97% RA; Pain 0/10; aa5aa5
--- NOTE | 2018-12-10 21:37 | EDPHYS ---
Physician Documentation [facility] Name: Shanika Crane Age: 63 yrs Sex: Female : 1955 Arrival Date: 12/10/2018 Time: 17:16 Bed 7 Private MD: Fantasma Patten E ED Physician Marivel Cedeño HPI: 12/10 17:48 This 63 yrs old Female presents to ER via Ambulatory with complaints of rn Abdominal Pain, Vomiting. 17:48 The patient presents to the emergency department with nausea, vomiting. Onset: The rn symptoms/episode began/occurred 3 day(s) ago. Possible causes: unknown. The symptoms are aggravated by nothing. The symptoms are alleviated by nothing. Severity of symptoms: At their worst the symptoms were moderate in the emergency department the symptoms are unchanged. The patient has not experienced similar symptoms in the past. REports abd bloating, vomiting, nausea, denies abd pain, is having bowel movements, began 3 days ago. Has had gallbladder removed in past. NO blood in stool. See. Dr. Gee for GERD. NO sick contacts. Denies chest pain.. Historical: - Allergies: 17:48 No Known Allergies; iw - Home Meds: 17:48 levothyroxine 125 mcg tab 1 tab once daily [Active]; lisinopril-hydrochlorothiazide iw 20-25 mg oral tab 1 tab once daily [Active]; Lyrica 100 mg Oral 2 times per day [Active]; atorvastatin 40 mg oral tab 1 tab once daily [Active]; Linzess 145 mcg oral cap 1 cap once daily [Active]; pantoprazole 40 mg oral TbEC 1 tab once daily [Active]; metformin 1,000 mg Oral tab 1 tab 2 times per day [Active]; Levemir FlexTouch 100 unit/mL (3 mL) subcutaneous inpn 80 unit daily [Active]; Novolin R Sub-Q 10 unit twice a day [Active]; ozempic 1 mg weekly [Active]; tramadol 50 mg Oral tab as needed [Active]; - PMHx: 17:48 Diabetes - IDDM; Hypertension; Hyperlipidemia; Hypothyroidism; iw - PSHx: 17:48 Hysterectomy; Appendectomy; Cholecystectomy; iw - Immunization history:: Adult Immunizations not up to date. - Social history:: Smoking status: Patient/guardian denies using tobacco. - Ebola Screening: : Patient negative for fever greater than or equal to 101.5 degrees Fahrenheit, and additional compatible Ebola Virus Disease symptoms Patient denies exposure to infectious person Patient denies travel to an Ebola-affected area in the 21 days before illness onset No symptoms or risks identified at this time. - Family history:: not pertinent. - Hospitalizations: : No recent hospitalization is reported. ROS: 17:48 Constitutional: Negative for fever, chills, and weight loss, Eyes: Negative for injury, rn pain, redness, and discharge, Cardiovascular: Negative for chest pain, palpitations, and edema, Respiratory: Negative for shortness of breath, cough, wheezing, and pleuritic chest pain, Abdomen/GI: + abd bloating and vomiting : Negative for injury, bleeding, discharge, and swelling, MS/Extremity: Negative for injury and deformity, Skin: Negative for injury, rash, and discoloration, Neuro: + generalized weakness Exam: 17:51 Constitutional: This is a well developed, well nourished patient who is awake, alert, rn and in no acute distress. Head/Face: Normocephalic, atraumatic. ENT: dry MM Respiratory: No increased work of breathing, no retractions or nasal flaring. Abdomen/GI: soft, mild epigastric tenderness, no rebound or masses Skin: Warm, dry MS/ Extremity: Pulses equal, no cyanosis. Neurovascular intact. Full, normal range of motion. Equal circumference. Neuro: Awake and alert, GCS 15, oriented to person, place, time, and situation. Cranial nerves II-XII grossly intact. Motor strength 5/5 in all extremities. Sensory grossly intact. Cerebellar exam normal. Normal gait. Vital Signs: 17:49 BP 140 / 88; Pulse 92; Resp 16; Temp 98.2; Pulse Ox 97% on R/A; Weight 77.11 kg; Height iw 5 ft. 2 in. (157.48 cm); Pain 0/10; 18:55 BP 128 / 86; Pulse 90; Resp 16 S; Temp 98.0(O); Pulse Ox 97% on R/A; Pain 0/10; aa5 19:10 BP 105 / 76; Pulse 86; Resp 16; Pulse Ox 98% ; Pain 0/10; aa1 21:09 BP 109 / 75; Pulse 92; Resp 18; Temp 97.6; Pulse Ox 98% on R/A; Pain 0/10; aa1 17:49 Body Mass Index 31.09 (77.11 kg, 157.48 cm) iw MDM: 17:40 Patient medically screened. rn 21:33 Differential diagnosis: gastritis, viral gastroenteritis, gastroenteritis. Data ma2 reviewed: vital signs, nurses notes, radiologic studies. Counseling: I had a detailed discussion with the patient and/or guardian regarding: the historical points, exam findings, and any diagnostic results supporting the discharge/admit diagnosis, the presence of at least one elevated blood pressure reading (>120/80) during this emergency department visit, the need for outpatient follow up. Response to treatment: the patient's symptoms have resolved after treatment. 12/10 17:48 Order name: Basic Metabolic Panel rn 12/10 17:48 Order name: CBC with Diff rn 12/10 17:48 Order name: Hepatic Function rn 12/10 17:48 Order name: Lipase rn 12/10 18:24 Order name: CBC with Automated Diff; Complete Time: 18:46 EDMS 12/10 18:33 Order name: Basic Metabolic Panel; Complete Time: 18:46 EDMS 12/10 17:48 Order name: CT Abd/Pelvis - PO and IV Contrast rn 12/10 18:33 Order name: Liver (Hepatic) Function; Complete Time: 18:46 EDMS 12/10 18:33 Order name: Lipase; Complete Time: 18:46 EDMS 12/10 18:45 Order name: Manual Differential; Complete Time: 18:46 EDMS 12/10 17:48 Order name: IV Saline Lock; Complete Time: 17:52 rn 12/10 17:48 Order name: Labs collected and sent; Complete Time: 17:52 rn 12/10 17:48 Order name: EKG - Nurse/Tech; Complete Time: 18:12 rn 12/10 17:48 Order name: EKG; Complete Time: 17:49 rn Administered Medications: 18:08 Drug: Zofran 4 mg Route: IVP; Site: right antecubital; aa5 18:20 Follow up: Response: No adverse reaction; Nausea is decreased aa5 18:08 Drug: NS 0.9% 500 ml Route: IV; Rate: bolus; Site: right antecubital; aa5 19:57 Follow up: IV Status: Completed infusion; IV Intake: 500ml aa1 18:19 Drug: GI Cocktail without - (Maalox Suspension 30 ml, Lidocaine Liquid 2 % 15 aa5 ml) Route: PO; 21:59 Drug: Zofran 4 mg Route: IVP; Site: right antecubital; jd3 22:00 Follow up: Response: Medication administered at discharge. jd3 Disposition: 12/10/18 21:34 Discharged to Home. Impression: Noninfective gastroenteritis and colitis, unspecified. - Condition is Stable. - Discharge Instructions: Colitis. - Prescriptions for Flagyl 500 mg Oral Tablet - take 4 tablet by ORAL route one time for 1 day; 4 tablet. Tylenol- Codeine #3 300-30 mg Oral Tablet - take 2 tablet by ORAL route every 6 hours As needed; 30 tablet. Zofran 4 mg Oral Tablet - take 1 tablet by ORAL route every 12 hours As needed; 20 tablet. Cipro 500 mg Oral Tablet - take 1 tablet by ORAL route every 12 hours for 7 days; 14 tablet. Pepcid 20 mg Oral Tablet - take 1 tablet by ORAL route once daily for 10 days; 10 tablet. - Medication Reconciliation Form, Thank You Letter, Antibiotic Education, Prescription Opioid Use form. - Follow up: Private Physician; When: Tomorrow; Reason: Continuance of care. Follow up: Fantasma Gee MD; When: Tomorrow; Reason: If symptoms return. Signatures: Dispatcher [employer] EDMS Sanaz Young RN RN iw Nieto, Roman, MD MD rn Calderon, Audri, RN RN aa5 Raymond Vyas RN RN jd3 Alzahri, Mohammad, MD MD ma2 Josie Sal RN aa1 Corrections: (The following items were deleted from the chart) 21:36 21:34 12/10/2018 21:34 Discharged to Home. Impression: Noninfective gastroenteritis and ma2 colitis, unspecified. Condition is Stable. Forms are Medication Reconciliation Form, Thank You Letter, Antibiotic Education, Prescription Opioid Use. Follow up: Private Physician; When: Tomorrow; Reason: Continuance of care. ma2 22:01 21:36 12/10/2018 21:34 Discharged to Home. Impression: Noninfective gastroenteritis and jd3 colitis, unspecified. Condition is Stable. Discharge Instructions: Colitis. Prescriptions for Flagyl 500 mg Oral Tablet - take 4 tablet by ORAL route one time for 1 day; 4 tablet, Tylenol-Codeine #3 300-30 mg Oral Tablet - take 2 tablet by ORAL route every 6 hours As needed; 30 tablet, Zofran 4 mg Oral Tablet - take 1 tablet by ORAL route every 12 hours As needed; 20 tablet, Cipro 500 mg Oral Tablet - take 1 tablet by ORAL route every 12 hours for 7 days; 14 tablet, Pepcid 20 mg Oral Tablet - take 1 tablet by ORAL route once daily for 10 days; 10 tablet. and Forms are Medication Reconciliation Form, Thank You Letter, Antibiotic Education, Prescription Opioid Use. Follow up: Private Physician; When: Tomorrow; Reason: Continuance of care. Follow up: Fantasma Gee; When: Tomorrow; Reason: If symptoms return. ma2
--- NOTE | 2018-12-11 07:46 | EKG ---
Test Date: 2018-12-10 Test Time: 18:13:04 Distribution Engineer: DREW MEASUREMENT RESULTS: Intervals: Rate: 88 UT: 146 QRSD: 78 QT: 412 QTc: 498 [place]: P: 36 UT: 146 QRS: 1 T: 19 INTERPRETIVE STATEMENTS: Normal sinus rhythm Nonspecific T wave abnormality Prolonged QT Abnormal ECG Compared to ECG 10/14/1994 08:57:00 T-wave abnormality now present Prolonged QT interval now present Electronically Signed On 12-11-18 07:45:55 CDT by Dwaine Avalos
--- NOTE | 2018-12-13 13:35 | RAD REPORT ---
EXAM DESCRIPTION: CT - Abdomen Pelvis W Contrast - 12/10/2018 9:51 pm CLINICAL HISTORY: Abdominal pain with nausea and vomiting. COMPARISON: None. TECHNIQUE: CT scan of the abdomen and pelvis was performed with IV contrast. This exam was performed according to our departmental dose-optimization program, which includes automated exposure control, adjustment of the mA and/or kV according to patient size and/or use of iterative reconstruction techn ique. FINDINGS: The lung bases are clear. No pleural or pericardial effusions. There is no hiatal hernia. There has been a prior cholecystectomy. The liver, spleen, pancreas, adrenal glands, and kidneys are normal. No hydronephrosis or urinary stones. There has been a prior hysterectomy. Mild wall thickenin g of the urinary bladder. There has been a prior appendectomy. The colon is fluid-filled, suggesting a diarrheal illness. No sm all bowel obstruction. No intraperitoneal free fluid or free air is seen. There are bilateral pars defects at L5-S1 with grade 1 anterolisthesis. The aorta is normal caliber a nd contains atherosclerotic calcifications. No body wall hernia. IMPRESSION: 1. Fluid-filled colon suggesting a diarrheal illness. 2. No diverticulitis or small bowel obstruction. Electronically signed by: Jad Griggs MD 12/10/2018 8:14 PM CDT Due to temporary technical issues with the PACS/Fluency reporting system, reports are being signed by the in house radiologist as a courtesy to ensure prompt reporting. The interpreting radiologist is f ully responsible for the content of the report.
== END 2018-12-10 22:01 | disposition home or self-care (01) ==
LOC: ER 17:11
DX: K52.9 Noninfective gastroenteritis and colitis, unspecified (principal); E11.9 Type 2 diabetes mellitus without complications; I10 Essential (primary) hypertension; E78.5 Hyperlipidemia, unspecified; E03.9 Hypothyroidism, unspecified; Z79.4 Long term (current) use of insulin
CPT/HCPCS: 96361; 93005; 85025; 80048; 36415; 80076; 83690; 74177; 96374; 99284; J2405 ×2

== ENCOUNTER 2019-04-08 07:46 | Day surgery (SDC) | payer OTHER ==
--- NOTE | 2019-04-06 12:42 | EKG ---
Test Date: 2019-04-06 Test Time: 10:46:52 Vehicle Monitor Technician: LISBETH MEASUREMENT RESULTS: Intervals: Rate: 87 NH: 156 QRSD: 74 QT: 376 QTc: 452 [place]: P: 40 NH: 156 QRS: 13 T: 41 INTERPRETIVE STATEMENTS: Normal sinus rhythm Normal ECG Compared to ECG 12/10/2018 18:13:04 T-wave abnormality no longer present Prolonged QT interval no longer present Electronically Signed On 04-06-19 12:42:20 CDT by Gamaliel Aguila
[2019-04-08] MEDS ORDERED: NA CHLORIDE 0.9% 1,000 ML ONE ×2 (08:00→10:50)
[2019-04-08] MEDS ORDERED: SCOPOLAMINE HYDROBROMIDE PATCH TD ONE (08:36)
[2019-04-08] MEDS ORDERED: BUPIVACA 0.5%/EPI 0.0005%/PF 30 ML VIAL ONE (08:54)
[2019-04-08] MEDS ORDERED: MIDAZOLAM HCL 2 MG/2 ML INJ ONE (09:20)
[2019-04-08] MEDS ORDERED: PROPOFOL 200 MG/20 ML VIAL IV ONE (09:20)
[2019-04-08] MEDS ORDERED: LIDOCAINE 1% MPF 2 ML AMPULE ONE (09:21)
[2019-04-08] MEDS ORDERED: ROCURONIUM 50 MG/5 ML VIAL IV ONE (09:22)
[2019-04-08] MEDS ORDERED: BUPIVACA 0.5%/EPI 0.0005%/PF 10 ML VIAL ONE (09:26)
[2019-04-08] MEDS ORDERED: FENTANYL CITR 100 MCG/2 ML ONE (09:38)
[2019-04-08] MEDS ORDERED: dexAMETHasone 10 MG/ML VIAL ONE (09:38)
[2019-04-08] MEDS ORDERED: ONDANSETRON 4 MG/2 ML VIAL ONE (09:48)
--- NOTE | 2019-04-08 10:31 | P.BOP ---
Preoperative diagnosis: left tonsil mass Postoperative diagnosis: same Primary procedure: biopsy left tonsil Seat Maker: NONE,NONE Estimated blood loss: nil Specimen: left tonsil mass Findings: peduculated firm round mass Anesthesia: General Complications: None Implants: none Fluids & blood products: see an. records Transferred to: Recovery Room Condition: Good
[2019-04-08 14:17] VITALS: BP 107/63; TEMP 96.8; O2SAT 93
--- NOTE | 2019-04-08 21:50 | OP ---
Date of Procedure: 04/08/2019 Surgeon: Alicia Stewart MD Indication For Procedure: Ms. Shanika Crane presented with an approximately 10-year history of a sl owly growing left tonsillar mass resulting in dysphagia and throat irritation. The risks, benefits, and alternatives to the procedure were discussed with the patient who agreed to proceed. Description Of Procedure: The patient was brought to the operating room. She was placed under gener al anesthesia via oral endotracheal tube. The head of bed was turned 90 degrees. A McIvor mouth gag was placed for exposure of the oropharynx. The lips, tongue, palate, uvula and right tonsil were al l unremarkable. The right tonsil did have some small tonsilliths, but to palpation, there was no ind uration, ulceration or concerning findings. The left tonsil was similar in texture, but the mid port ion appeared to have a stalk of approximately 3 to 4 mm of tissue with a firm white lesion attached b y this stalk. The mass was approximately 1.5 x 2 cm. The pedunculated mass was grasped and the Bovi e electrocautery was used to divide the specimen from the tonsil tissue. The attachment point was tr eated with direct pressure and cauterization to control bleeding. After removal of the mass, the ton manny was again palpated. There was no palpable induration or sense of residual tumor and given the lo ng-standing history of this mass, suspicion for malignant neoplasm was relatively low. Therefore, a formal tonsillectomy was not performed. The McIvor mouth gag was released and removed. The mandible was mobile. There was no evidence of injury to the lips, tongue, teeth, or gingiva. The patient wa s returned to care of anesthesia for awakening and extubation in the operating room, which proceeded without difficulty. Specimen was sent in formalin to Pathology for further evaluation. DAMIAN/MELBA Voice ID: [id number] Report ID: [id number]
--- OUTSIDE RECORDS SUMMARY | 2019-05-01 02:13 | XMS REPORT ---
:1955 [facility] Address [address] [place] [address] Care Team Providers Name Role Phone Unavailable Unavailable Unavailable Payers Payer Name Policy Type Policy Number Effective Date Expiration Date Problems This patient has no known problems. Allergies, Adverse Reactions, Alerts This patient has no known allergies or adverse reactions. Medications This patient has no known medications. Results Test Description Test Time Test Comments Text Results Atomic Results Result Comments - HEAD AND NECK 2019-02-02 08:17:00 Name: MAGALI COTA : 1955 Age/S: 63 / F [id number] Unit #: [id number] Loc: [place] [address] Phys: Birgit Barriga MD Acct: [id number] Dis Date: Status: REG CLI PHONE #: [phone] Exam Date: 02/02/2019 0720 FAX #: Reason: HYPOTHROIDISM EXAMS: CPT: [id number] US HEAD AND NECK [address]11 HISTORY: Hypothyroidism Location: C3 FINDINGS: Sonographic images of the thyroid were obtained. The thyroid is heterogeneous and small in size. The right thyroid lobe measures 3.7 x 0.9 x 0.9 cm. The left thyroid lobe measures 3.5 x 0.9 x 0.9 cm. No dominant thyroid nodule or mass. IMPRESSION: 1. Small heterogeneous thyroid. No dominant nodule or mass identified. at 0817 Reported and signed by: Christoph Hearn M.D. CC: Birgit Barriga MD; Donal SALAZAR Technologist: AB SAGRARIO Christian [employer] Date/Time: 02/02/2019 (816) [id number] PAGE 1 Signed Report Name: [facility] : 1955 Age/S: 63 / F [id number] Unit #: [id number] Loc: [place] [address] Phys: Birgit Barriga MD Acct: [id number] Dis Date: Status: REG CLI PHONE #: [phone] Exam Date: 02/02/2019 0720 FAX #: Reason: HYPOTHROIDISM EXAMS: CPT: [id number] US HEAD AND NECK [address]5836 <Continued> Orig Print D/T: S: 02/02/2019 (819) Probe: PAGE 2 Signed Report
== END 2019-04-08 13:02 | disposition home or self-care (01) ==
LOC: OR 07:46
PROVIDERS: ATTEND Otolaryngology
PROC: 0CBPXZX Excision of Tonsils, External Approach, Diagnostic (ICD-10-PCS; principal; 2019-04-08 09:30)
DX: R22.0 Localized swelling, mass and lump, head (principal); R13.12 Dysphagia, oropharyngeal phase; K21.9 Gastro-esophageal reflux disease without esophagitis; E11.9 Type 2 diabetes mellitus without complications; I10 Essential (primary) hypertension; E78.00 Pure hypercholesterolemia, unspecified; E03.9 Hypothyroidism, unspecified; G62.9 Polyneuropathy, unspecified; E66.9 Obesity, unspecified; Z80.9 Family history of malignant neoplasm, unspecified; Z90.49 Acquired absence of other specified parts of digestive tract; Z83.3 Family history of diabetes mellitus; Z82.3 Family history of stroke; Z82.49 Family history of ischemic heart disease and other diseases of the circulatory system; Z82.5 Family history of asthma and other chronic lower respiratory diseases
CPT/HCPCS: 93005; 36415; 82962 ×2; 88304; 42800; J2704; J2250; J3010; J1100; J2001; J7030 ×2; J2405; 88305

== ENCOUNTER 2023-03-04 09:19 | Day surgery (SDC) | payer OTHER ==
--- NOTE | 2023-03-02 09:08 | RAD REPORT ---
EXAM DESCRIPTION: RAD - Chest Pa And Lat (2 Views) - 03/02/2023 8:47 am CLINICAL HISTORY: pre op pending trigger finger release surgery COMPARISON: Chest Pa And Lat (2 Views) dated 02/28/2019 FINDINGS: Lines: None. Lungs: No evidence of edema or pneumonia. Pleural: No significant pleural effusions or pneumothorax. Cardiac: The heart size is within normal limits. Mediastinum: Within normal limits. Bones: No acute fractures. Other: None IMPRESSION: No acute cardiopulmonary disease.
[2023-03-04] MEDS ORDERED: NA CHLORIDE 0.9% 1,000 ML ONE (09:49)
[2023-03-04] MEDS ORDERED: CEFAZOLIN SODIUM 2 GM/VIAL ONE (09:49)
[2023-03-04] MEDS ORDERED: SCOPOLAMINE HYDROBROMIDE PATCH TD ONE (10:28)
[2023-03-04] MEDS ORDERED: BUPIVACAINE 0.25% PF 10 ML VIAL ONE ×2 (10:55→10:57)
[2023-03-04] MEDS ORDERED: FENTANYL CITR 100 MCG/2 ML ONE (11:04)
[2023-03-04] MEDS ORDERED: propofoL 200 MG/20 ML VIAL IV ONE (11:04)
[2023-03-04] MEDS ORDERED: LIDOCAINE 2% MPF 5 ML VIAL ONE (11:05)
[2023-03-04] MEDS ORDERED: MIDAZOLAM HCL 2 MG/2 ML INJ ONE (11:05)
[2023-03-04] MEDS ORDERED: ONDANSETRON 4 MG/2 ML VIAL ONE (11:05)
[2023-03-04] MEDS ORDERED: ROCURONIUM 50 MG/5 ML VIAL IV ONE (11:22)
[2023-03-04] MEDS ORDERED: SUGAMMADEX SODIUM 200 MG/2 ML VIAL IV ONE (12:04)
--- NOTE | 2023-03-04 12:15 | P.BOP ---
Preoperative diagnosis: left middle finger trigger digit Postoperative diagnosis: same Primary procedure: left middle finger A1 caty release Clarifier Operator: NONE,NONE Estimated blood loss: 2 cc Specimen: none Findings: see dictation Anesthesia: General Complications: None Implants: none Fluids & blood products: per anesthesia record Transferred to: Recovery Room Condition: Good
[2023-03-04] MEDS ORDERED: PROMETHAZINE INJ 25 MG/ML AMP ONE (12:31)
[2023-03-04] MEDS ORDERED: D50W 25 GM/50 ML SYRINGE IV ONE (12:41)
[2023-03-04 14:33] VITALS: BP 121/66; TEMP 97
[2023-03-04 14:34] VITALS: O2SAT 99
--- NOTE | 2023-03-04 19:41 | OP ---
Date of Procedure: 03/04/2023 Surgeon: Tadeo Beltre MD Preoperative Diagnosis: Left middle finger trigger digit. Postoperative Diagnosis: Left middle finger trigger digit. Procedure Performed: Left middle finger A1 caty release. Anesthesia: General endotracheal. Fluids: Per Anesthesia record. Estimated Blood Loss: 2 cc. Complications: None. Indication For Procedure: Shanika is a 67-year-old female who presented to my clinic with signs and sym ptoms consistent with left middle finger trigger digit. Patient failed conservative treatment measur es, has significant pain interfering with activities of daily living. I discussed with patient at [facility] risks and benefits associated with operative and nonoperative treatment measures. She expressed understanding and elected to proceed with operative treatment. Description Of Procedure: After informed consent was obtained, the patient was identified in the pre operative holding area. The left middle finger was marked. Patient was then brought back to the ope rating room, transferred to the operative table in supine fashion, placed under general endotracheal anesthesia. The left upper extremity was then prepped and draped in usual sterile fashion. A time-o ut was initiated. The correct patient and procedure confirmed and identified. Patient did receive p reoperative prophylactic antibiotics. The left upper extremity was then exsanguinated. Tourniquet w as inflated to 250 mmHg. Approximately, 1.5 cm longitudinal incision was made centered over the midd le finger A1 caty. Dissection was taken down to the flexor tendon sheath. A 15 blade was then use d to open the flexor tendon sheath. There was significant amount of synovial fluid after this was co mpleted. Portion of the flexor tendon sheath was excised to minimize risk of recurrence. Tendon was then brought out through the incision. There was full excursion of the tendon without triggering no awilda. The wound was then irrigated thoroughly with normal saline. Skin was approximated using a 5-0 Prolene. Sterile dressings were applied. Patient was awakened and transferred to PACU in stable con dition. Postoperative Plan: Patient will be nonweightbearing on her left upper extremity. She may work on r earl of motion exercises. She will follow up in 10 days for wound check and suture removal. CV/MODL Voice ID: [id number] Report ID: [id number]
== END 2023-03-04 14:19 | disposition home or self-care (01) ==
LOC: OR 09:19
PROVIDERS: ATTEND Orthopaedic Surgery Sports Medicine
PROC: 0LN80ZZ Release Left Hand Tendon, Open Approach (ICD-10-PCS; principal; 2023-03-04 11:00)
DX: M65.332 Trigger finger, left middle finger (principal); M25.542 Pain in joints of left hand; E11.9 Type 2 diabetes mellitus without complications; I10 Essential (primary) hypertension; E78.00 Pure hypercholesterolemia, unspecified; E03.9 Hypothyroidism, unspecified; K76.0 Fatty (change of) liver, not elsewhere classified; K58.9 Irritable bowel syndrome, unspecified
CPT/HCPCS: 82947 ×2; 71046; 26055; J2550; J2704; J2001; J2250; J3010; J2405; J7030